=== PATIENT | female | born 1975 | race Caucasian/White ===

== ENCOUNTER 2017-12-30 10:11 | Inpatient (IN) | payer SELFPAY ==
[2017-12-30 11:21] LABS: #Eosinphils 0.1 thou/uL (0.0-0.7); #Lymphocytes 1.2 thou/uL (1.20-3.40); #Monocytes 0.7 thou/uL (0.11-0.59); #Neutrophils 7.2 thou/uL (1.40-6.50); %Basophils 0.5 % (0.0-1.0); %Eosinophils 1.1 % (0.0-10.0); %Lymphocytes 13.1 % (21.0-51.0); %Monocytes 7.6 % (0.0-10.0); %Neutrophils 77.7 % (42.0-75.0); Hemoglobin 15.2 g/dL (12.0-16.0); Mean Corpuscular HGB CONC 32.4 g/dL (32.0-36.0); Mean Corpuscular Hemoglobin 28.5 pg (27.0-31.0); Mean Platelet Volume 8.8 fL (7.4-10.4); Platelet Count 247 thou/uL (130-400); RBC Distribution Width 17.4 % (11.5-14.5); Red Blood Cell (RBC) Count 5.32 mill/uL (4.20-5.40); White Blood Cell (WBC) Count 9.2 thou/uL (4.8-10.8)
[2017-12-30 11:39] LABS: ALT (SGPT) 20 U/L (8-55); AST (SGOT) 25 U/L (5-34); Albumin 3.2 g/dL (3.5-5.0); Alkaline Phosphatase 108 U/L (40-150); Anion Gap 12 mmol/L (10-20); BUN (Urea Nitrogen) 30 mg/dL (7.0-18.7); Calc. Creatinine Clearance 0 mL/min (70-130); Calcium 8.7 mg/dL (7.8-10.44); Carbon Dioxide 22 mmol/L (22-29); Chloride 105 mmol/L (98-107); Estimated GFR-MDRD 19; Globulin 3.4 g/dL (2.4-3.5); Glucose 111 mg/dL (70-105); Potassium 3.5 mmol/L (3.5-5.1); Protein, Total 6.6 g/dL (6.0-8.3); Sodium 135 mmol/L (136-145)
[2017-12-30 11:43] LABS: CKMB 2.8 ng/mL (0-6.6); Troponin I 0.299 ng/mL (< 0.028)
[2017-12-30] MEDS ORDERED: Furosemide 40 MG/4 ML VIAL ONE (11:43)
[2017-12-30] MEDS ORDERED: Nitroglycerin 50 MG/250 ML BOT 250 ML ONE (12:57)
--- NOTE | 2017-12-30 13:05 | RAD ---
RADIOGRAPH CHEST 1 VIEW: HISTORY: 42-year-old female with dyspnea. FINDINGS: There is cardiomegaly. There is no evidence of air space density, pulmonary edema, or pneumothorax. T he lateral costophrenic angles are sharp. IMPRESSION: 1. No acute pulmonary findings. 2. Cardiomegaly without congestive heart failure. ghulam [] POS: BREEZY
[2017-12-30] MEDS ORDERED: Nitroglycerin 50 MG/250 ML BOT 250 ML IVPB SCH (14:45)
[2017-12-30 14:47] LABS: BHCG - Serum Negative (NEGATIVE); Pregs Control Background? CLEAR/WHITE (CLR/WHITE); Pregs Control Bar Appear? YES (CONTROL BAR)
[2017-12-30 14:48] LABS: Troponin I 0.283 ng/mL (< 0.028)
[2017-12-30] MEDS ORDERED: Lorazepam 2 MG/ML VIAL ONE (15:08)
[2017-12-30 15:23] VITALS: BMI 41.8
[2017-12-30] MEDS ORDERED: Calcium Carbonate 500 MG ChewTAB PO PRN (17:15)
[2017-12-30] MEDS ORDERED: Bisacodyl 5 MG TAB PO PRN (17:18)
[2017-12-30] MEDS ORDERED: Acetaminophen 325 MG TAB PO PRN (17:18)
[2017-12-30] MEDS ORDERED: Acetaminophen 650 MG Suppository PR PRN (17:18)
[2017-12-30] MEDS: cloNIDine 0.1 MG TAB PO PRN (18:08)
--- NOTE | 2017-12-30 18:30 | HP ---
PRIMARY CARE PROVIDER: None. CHIEF COMPLAINT: Shortness of breath. HISTORY OF PRESENT ILLNESS: Ms. Sanchez is a pleasant 42-year-old lady, who was seen at [facility] on 12/30/2017. She reports that she was diagnosed with congestive heart failure approximately 2 years ago at [facility]. She was told that she had stage 3 heart failure. She was started on furosemide. At the [facility] time, she had a cardiac catheterization during that hospitalization and she was told that she had clean coronaries. She was subsequently hospitalized in 04/2017 at the same facility and reports that she had ultrasound of kidneys. She does not know the result of the test. 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 She was taking furosemide 40 mg 2 times a day. She ran out of the medications a couple of weeks ago and stopped taking furosemide and isosorbide mononitrate. She found 2 tablets of furosemide yesterda y and took them. Over the last couple of weeks, she has had progressively worsening shortness of breath. She reports cough. She also reports bilateral lower extremity swelling and abdominal swelling. She denies any c hest pain. She denies any fevers or chills. She endorses orthopnea. She reports occasional sputum. She denies any nausea, vomiting, diarrhea or abdominal pain. She does report sensation of bloated abdomen. REVIEW OF SYSTEMS: All other systems reviewed and found to be negative. PAST MEDICAL HISTORY: Significant for congestive heart failure and hypertension. PAST SURGICAL HISTORY: Significant for cholecystectomy, section x3 and tubal ligation. SOCIAL HISTORY: The patient quit smoking 4 months ago. She denies any alcohol use or recreational d rug use. FAMILY HISTORY: Significant for congestive heart failure in her father, dementia and ovarian cancer in her mother. Her sister also had heart failure. ALLERGIES: No known drug allergies. CURRENT MEDICATIONS: Tums 1000 mg 4 times a day as needed; Coreg 12.5 mg 2 times a day; furosemide 4 0 mg 2 times a day, which she has not been taking; hydralazine 50 mg 3 times a day; isosorbide mononi trate 30 mg daily, which she has not been taking; and lisinopril 5 mg daily. PHYSICAL EXAMINATION: GENERAL: Ms. Sanchez is awake and alert, not in acute distress. VITAL SIGNS: Blood pressure is 211/125, pulse is 78, she is breathing at rate of 22 and saturating 9 7% on room air. She is afebrile. EYES: No scleral icterus. No conjunctival pallor. ENT: Moist mucosal membranes, no oropharyngeal erythema or exudates. NECK: Supple, nontender, trachea is midline. She has jugular venous distention. RESPIRATORY: Accessory muscles of breathing are not active. Chest wall movements are symmetric bila terally. She has bibasilar crackles. CARDIOVASCULAR: S1 and S2 are heard, regular. Peripheral pulses palpable. No carotid bruit, no per icardial rub. ABDOMEN: Distended, nontender, bowel sounds are heard, no hepatomegaly, no splenomegaly. NEUROLOGIC: Cranial nerves II-XII intact. Deep tendon reflexes are 2+. MUSCULOSKELETAL: Power is 5/5 in all four extremities. She has bilateral lower extremity edema. SKIN: Tattoos present. LYMPHATIC: No cervical lymphadenopathy. PSYCHIATRIC: Normal mood, normal affect, patient is oriented to person, place and time. BODY HABITUS: Obese. LABORATORY DATA: Ms. Sanchez's labs and investigations were reviewed. I reviewed her electrocardiogram , which shows normal sinus rhythm, no ST changes to suggest an acute coronary syndrome. I also revie wed her chest x-ray, which does not show any pulmonary infiltrates. She has an unremarkable CBC, dec reased sodium of 135, normal potassium, elevated blood urea nitrogen of 30, elevated creatinine 2.79, normal calcium, elevated total bilirubin of 2.0, normal AST, normal ALT, normal alkaline phosphatase , indeterminate troponin I of 0.299, elevated BNP of 8296 and decreased albumin of 3.2. Serum pregna ncy test is negative. ASSESSMENT AND PLAN: Ms. Sanchez is a pleasant 42-year-old lady, who was seen at [facility] on 12/30/2017. Her problem list includes: 1. Hypertensive urgency: Ms. Sanchez is presenting with hypertensive urgency. She reports compliance to all her medications except for furosemide and isosorbide mononitrate. She will be admitted to the CCU and continued on nitroglycerin drip, which has been started by the emergency room physician noah sun of congestive heart failure. Her vital signs will be monitored and antihypertensives titrated as needed. 2. Congestive heart failure exacerbation. The patient has known congestive heart failure. We will continue the patient on intravenous furosemide. We will continue on nitroglycerin drip. We will jonathan ck 2D echocardiogram to evaluate cardiac function. 3. Renal insufficiency: Chronicity unclear. However, she reports having renal ultrasound last year . It is possible that this is chronic kidney disease or acute on chronic renal failure. We will obt ain records from [facility] both regarding renal issues as well as her cardiac procedures to help with management here. 4. Hyponatremia: Mild. 5. Indeterminate troponin. The patient denies any chest pain. Troponin elevation could be secondar y to congestive heart failure exacerbation or chronic renal insufficiency. We will trend troponins. LEVEL OF RISK: High. LEVEL OF COMPLEXITY: High.
[2017-12-30] MEDS: hydrALAZINE 25 MG TAB PO SCH (19:27)
[2017-12-30] MEDS: Heparin 5,000 UNITS/ML VIAL SC SCH (19:28)
[2017-12-30] MEDS ORDERED: Carvedilol 6.25 MG TAB PO SCH (21:00)
[2017-12-30] MEDS ORDERED: Furosemide 40 MG TAB PO SCH (21:00)
[2017-12-30] MEDS: Lorazepam 2 MG/ML VIAL SLOW IVP PRN (21:11)
[2017-12-31 04:22] LABS: #Eosinphils 0.1 thou/uL (0.0-0.7); #Lymphocytes 1.1 thou/uL (1.20-3.40); #Monocytes 0.6 thou/uL (0.11-0.59); #Neutrophils 4.4 thou/uL (1.40-6.50); %Basophils 0.6 % (0.0-1.0); %Eosinophils 1.3 % (0.0-10.0); %Lymphocytes 17.3 % (21.0-51.0); %Monocytes 9.5 % (0.0-10.0); %Neutrophils 71.2 % (42.0-75.0); Hemoglobin 12.8 g/dL (12.0-16.0); Mean Corpuscular HGB CONC 32.7 g/dL (32.0-36.0); Mean Corpuscular Hemoglobin 28.8 pg (27.0-31.0); Mean Corpuscular Volume 87.9 fl (81.0-99.0); Mean Platelet Volume 8.8 fL (7.4-10.4); Platelet Count 205 thou/uL (130-400); RBC Distribution Width 17.1 % (11.5-14.5); Red Blood Cell (RBC) Count 4.44 mill/uL (4.20-5.40); White Blood Cell (WBC) Count 6.1 thou/uL (4.8-10.8)
[2017-12-31 04:32] LABS: Anion Gap 10 mmol/L (10-20); BUN (Urea Nitrogen) 27 mg/dL (7.0-18.7); Calc. Creatinine Clearance 49 mL/min (70-130); Calcium 7.8 mg/dL (7.8-10.44); Carbon Dioxide 25 mmol/L (22-29); Chloride 104 mmol/L (98-107); Estimated GFR-MDRD 20; Glucose 91 mg/dL (70-105); Potassium 3.3 mmol/L (3.5-5.1); Sodium 136 mmol/L (136-145)
[2017-12-31] MEDS ORDERED: Furosemide 40 MG/4 ML VIAL SLOW IVP SCH (06:00)
[2017-12-31] MEDS: hydrALAZINE 25 MG TAB PO SCH ×3 (08:47→20:43)
[2017-12-31] MEDS: Carvedilol 25 MG TAB PO SCH ×2 (08:48→20:44)
[2017-12-31] MEDS: Furosemide 40 MG TAB PO SCH ×2 (08:48→14:50)
[2017-12-31] MEDS: Heparin 5,000 UNITS/ML VIAL SC SCH ×3 (08:49→20:43)
[2017-12-31] MEDS ORDERED: Lisinopril 5 MG TAB PO SCH (09:00)
[2017-12-31] MEDS ORDERED: Potassium Chloride 20 MEQ TAB PO SCH (09:45)
[2017-12-31] MEDS ORDERED: hydrALAZINE 20 MG/ML VIAL SLOW IVP PRN (10:35)
[2017-12-31] MEDS ORDERED: Labetalol HCl 100 MG/20 ML VIAL SLOW IVP PRN (10:35)
--- NOTE | 2017-12-31 10:51 | CON ---
DATE OF CONSULTATION: 12/31/2017 HISTORY: The patient is an unfortunate 42-year-old woman with a history of severe cardiomyopathy who presented with headaches, nausea and weakness. The patient has a long history of poorly controlled hypertension. Three years ago she presented with congestive heart failure. She was found to have a severe cardiomyopathy. She apparently underwent a cardiac catheterization that revealed normal coron chris arteries. The patient has been under the care of a boxing promoter in [place] at [facility]. The patient states that she ran out of some of her medications. She presented to the emergency room with increasing weakness and dyspnea. PAST MEDICAL HISTORY: 1. Cardiomyopathy. 2. Hypertension. 3. Chronic renal insufficiency. PAST SURGICAL HISTORY: Cholecystectomy, tubal ligation. SOCIAL HISTORY: The patient has a long history of tobacco abuse. She denies having any use of exces s alcohol. FAMILY HISTORY: Strong family history of congestive heart failure. ALLERGIES: No known drug allergies. MEDICATIONS ON ADMISSION: Coreg 12.5 b.i.d., Lasix 40 b.i.d., Imdur 30 q.a.m., lisinopril 5 daily. PHYSICAL EXAMINATION: GENERAL: This is an obese woman in no acute distress. VITAL SIGNS: Blood pressure now is 144/92. NECK: Neck is full with no jugular venous distension. LUNGS: Clear to auscultation. HEART: Regular rate and rhythm, normal S1, S2. ABDOMEN: Distended. EXTREMITIES: Showed trace edema. LABORATORY: Sodium 135, potassium 3.5, chloride 105, respiratory rate 22, BUN 30, creatinine is 2.79 , troponin was 0.35. BNP was 8,298. Her white blood cell count was 6.1, hemoglobin 12.8, hematocrit 39.0 and her platelets were 205. Her chest x-ray showed cardiomegaly without any evidence of acute pulmonary edema. IMPRESSION: 1. Hypertensive crisis. 2. Cardiomyopathy. 3. Renal insufficiency. 4. Obesity. 5. Noncompliance. This patient presented with a hypertensive crisis after running out of some of her cardiac medication s. We will obtain records from [place]. We will repeat an echocardiogram to reevaluate her left vent ricular function. We will increase the dose of her Coreg to try to obtain optimal dosing of 50 mg tw ice daily. We will follow this patient with you through her hospitalization.
--- NOTE | 2017-12-31 12:45 | CON ---
DATE OF CONSULTATION: 12/31/2017 SERVICE: Pulmonary Medicine. REASON FOR CONSULTATION: ICU patient. HISTORY OF PRESENT ILLNESS: The patient is a 42-year-old white female with past medical history significant for hypertension and heart failure. For the last 2-3 weeks, the patient has had increasing lower extremity swelling and shortness of breath spells. She was not able to sleep at night. Anytime she would lie down, she wakes up 15-20 minutes later short of breath. She would have to breathe for a couple of minutes before drifting right back to sleep. She relates for the last 3 days, she has been sleeping almost continuously because she does not get any quality of rest. She decided it was time to come to the Emergency Department. She notes increasing lower extremity swelling. She also had increasing abdominal girth. Overnight, she got a dose of Lasix and things improved significantly. She has multiple features consistent with possible sleep apnea. She does not know of any kidney problems. PAST MEDICAL HISTORY: 1. Hypertension. 2. Chronic heart failure. PAST SURGICAL HISTORY: 1. Cholecystectomy. 2. x3. 3. Tubal ligation. SOCIAL HISTORY: The patient quit smoking 4 months ago, but before that she had a [id number] history of smoking. She denies any alcohol or illicit drug use. She has no exposure to chemicals, dust asbestos or tuberculosis. FAMILY HISTORY: Noncontributory. ALLERGIES: No known drug allergies. MEDICATIONS: List of her inpatient medications were reviewed. No specific updates were made at this time. REVIEW OF SYSTEMS : General, head, ears, eyes, nose, throat, cardiovascular, respiratory, GI, , musculoskeletal, neurologic and skin is negative except for mentioned in the HPI. PHYSICAL EXAMINATION: VITAL SIGNS: Afebrile, pulse 68, blood pressure 182/86, respirations 31, saturation 95% on room air. GENERAL: The patient is awake and alert, no apparent distress. LUNGS: Decent air entry. There is actually no prolonged expiratory phase, wheezing, rhonchi or crackles present. HEART: Normal rate, regular. ABDOMEN: Soft, nontender, nondistended. Bowel sounds are positive. MUSCULOSKELETAL: No cyanosis or clubbing. There is 1+ pitting in the right lower extremity and 2+ pitting in the left lower extremity. GENITOURINARY: No Willis. NEUROLOGIC: Grossly nonfocal. LABORATORY DATA: Creatinine 2.57 and gently down trending. Potassium 3.3. Basic metabolic profile is otherwise unremarkable. Troponin is gently up trending to 0.35, BNP 8200. Urine is unremarkable, though she has no uterus. Liver function studies are essentially unremarkable except for a total bilirubin of 2.0. IMAGING: Chest x-ray demonstrates cardiomegaly. There are subtle changes consistent with minimal volume overload with interstitial markings that predominate. That being said, low lung volumes could accentuate these markings. Pulmonary vascular congestion is a chronically evident. ASSESSMENT: 1. Acute on chronic heart failure. 2. Hypertensive emergency. 3. Hypokalemia. 4. Acute kidney injury verses chronic renal insufficiency. 5. Obstructive sleep apnea. 6. Non-ST elevation myocardial infarction. PLAN: The patient is doing fantastic. At this point, she can be transitioned to the telemetry unit. Potassium will be rechecked. Pulmonary Critical Care will continue to follow along for the time being. In the outpatient setting, I would like her to follow up with me, so we can set her up with a polysomnogram. 70 minutes have been devoted to this patient in various activities. I personally reviewed all imaging studies and laboratory data noted within this document. For fifty percent of this time, I was interacting with the patient at the bedside or coordinating care with the care team. For the remainder of the time I was immediately available to the patient in the hospital unit. SOPHIE
--- NOTE | 2017-12-31 16:55 | PDOC.PN ---
- Subjective Encounter Start Date: 12/31/17 Encounter Start Time: 09:20 Pt seen for followup re: CHF exacerbation. Denies chest pain, feels better in terms of breathing. - Objective Vital Signs & Weight: Vital Signs (12 hours) Temp Pulse Pulse Pulse Resp BP BP 12/31/17 15:00 97.7 F 64 20 12/31/17 14:50 64 12/31/17 14:47 64 20 12/31/17 14:27 58 L 64 176/99 H 172/83 H 12/31/17 12:00 98 F 12/31/17 08:47 68 12/31/17 08:00 97.8 F 68 19 BP Pulse Ox Pulse Ox Pulse Ox 12/31/17 15:00 98 12/31/17 14:50 12/31/17 14:47 172/83 H 98 12/31/17 14:27 96 96 12/31/17 12:00 12/31/17 08:47 12/31/17 08:00 94 L Weight Weight 237 lb 14.06 oz Most Recent Monitor Data Heart Rate from ECG 60 NIBP 176/99 NIBP BP-Mean 131 Respiration from ECG 25 SpO2 96 I&O: 12/30/17 12/31/17 01/01/18 06:59 06:59 06:59 Intake Total 1238 180 Output Total 2950 2750 Balance -1712 -7930 Result Diagrams: 12/31/17 03:38 12/31/17 03:38 Phys Exam - Physical Examination Obesity HEENT: moist MMs, sclera anicteric, oral pharynx no lesions, 2+ tonsils Neck: no nodes, supple, full ROM JVD Respiratory: no wheezing, no rhonchi Luís crackles Cardiovascular: RRR, no rub S1, S2 Gastrointestinal: soft, non-tender, positive bowel sounds distention Musculoskeletal: edema present Neurological: moves all 4 limbs Psychiatric: normal affect, A&O x 3 Dx/Plan (1) Acute exacerbation of CHF (congestive heart failure) Code(s): I50.9 - HEART FAILURE, UNSPECIFIED Status: Acute Qualifiers: Heart failure type: unspecified Qualified Code(s): I50.9 - Heart failure, unspecified Comment: await 2D echo, continue IV furosemide (2) Elevated troponin I level Code(s): R74.8 - ABNORMAL LEVELS OF OTHER SERUM ENZYMES Status: Acute Comment: due to CHF vs. demand ischemia vs. NSTEMI. Pt denies any chest pain at this time. (3) Hypokalemia Code(s): E87.6 - HYPOKALEMIA Status: Acute Comment: replace potassium, recheck. (4) CKD (chronic kidney disease) Code(s): N18.9 - CHRONIC KIDNEY DISEASE, UNSPECIFIED Status: Acute Comment: creatinine improving, await paperwork from outside facility to figure out chronicity (5) HTN (hypertension) Code(s): I10 - ESSENTIAL (PRIMARY) HYPERTENSION Status: Chronic Comment: BP better today. Continue to monitor vital signs and titrate antihypertensives as needed - Plan * . Review of Systems - Review of Systems Constitutional: negative: fever, chills, sweats, weakness, malaise Respiratory: Shortness of Breath, SOB with Excertion. negative: Cough, Dry, Hemoptysis, Pleuritic Pain, Sputum, Wheezing Cardiovascular: orthopnea, paroxysmal nocturnal dyspnea, edema. negative: chest pain, palpitations, light headedness Gastrointestinal: negative: Nausea, Vomiting, Abdominal Pain, Diarrhea, Constipation, Melena, Hematochezia Genitourinary: negative: Dysuria, Frequency, Incontinence, Hematuria, Retention Neurological: negative: Weakness, Numbness, Incoordination, Change in Speech, Confusion, Seizures - Medications/Allergies Allergies/Adverse Reactions: Allergies Allergy/AdvReac Type Severity Reaction Status Date / Time No Known Allergies Allergy Verified 12/30/17 15:17 Medications: Current Medications Acetaminophen (Tylenol) 650 mg PO Q4H PRN PRN Reason: Headache/Fever or Pain Acetaminophen (Tylenol) 650 mg TN Q4H PRN PRN Reason: Headache/Fever or Pain Bisacodyl (Dulcolax) 10 mg PO DAILYPRN PRN PRN Reason: Constipation Calcium Carbonate (Tums) 1,000 mg PO QID PRN PRN Reason: Indigestion Carvedilol (Coreg) 25 mg PO BID [facility] Last Admin: 12/31/17 08:48 Dose: 25 mg Clonidine (Catapres) 0.1 mg PO Q4H PRN PRN Reason: SBP Greater Than 170 Last Admin: 12/30/17 18:08 Dose: 0.1 mg Furosemide (Lasix) 40 mg PO 0900,1400 [facility] Last Admin: 12/31/17 14:50 Dose: 40 mg Heparin Sodium (Porcine) (Heparin) 5,000 units SC TID [facility] Last Admin: 12/31/17 14:51 Dose: 5,000 units Hydralazine HCl (Apresoline) 20 mg SLOW IVP Q2H PRN PRN Reason: SBP Greater Than 180 Hydralazine HCl (Apresoline) 50 mg PO TID [facility] Last Admin: 12/31/17 14:50 Dose: 50 mg Isosorbide Mononitrate (Imdur) 60 mg PO DAILY [facility] Last Admin: 12/31/17 08:48 Dose: 60 mg Labetalol HCl (Normodyne) 20 mg SLOW IVP Q2H PRN PRN Reason: SBP Greater Than 180 Lorazepam (Ativan) 0.5 mg SLOW IVP Q6H PRN PRN Reason: Anxiety Last Admin: 12/30/17 21:11 Dose: 0.5 mg Sodium Chloride (Flush - Normal Saline) 10 ml IVF Q12HR [facility] Last Admin: 12/31/17 08:49 Dose: 10 ml Sodium Chloride (Flush - Normal Saline) 10 ml IVF PRN PRN PRN Reason: Saline Flush
[2017-12-31] MEDS: cloNIDine 0.1 MG TAB PO PRN (18:06)
[2018-01-01] MEDS: Lorazepam 2 MG/ML VIAL SLOW IVP PRN (00:28)
[2018-01-01 04:21] LABS: Anion Gap 8 mmol/L (10-20); BUN (Urea Nitrogen) 34 mg/dL (7.0-18.7); Calc. Creatinine Clearance 49 mL/min (70-130); Calcium 8.3 mg/dL (7.8-10.44); Carbon Dioxide 29 mmol/L (22-29); Chloride 105 mmol/L (98-107); Estimated GFR-MDRD 21; Glucose 102 mg/dL (70-105); Magnesium 1.9 mg/dL (1.6-2.6); Potassium 3.8 mmol/L (3.5-5.1); Sodium 138 mmol/L (136-145)
[2018-01-01] MEDS: hydrALAZINE 25 MG TAB PO SCH ×3 (07:46→20:37)
[2018-01-01] MEDS: Furosemide 40 MG TAB PO SCH ×2 (07:46→14:10)
[2018-01-01] MEDS: Carvedilol 25 MG TAB PO SCH ×2 (07:46→20:38)
[2018-01-01] MEDS: Heparin 5,000 UNITS/ML VIAL SC SCH ×3 (07:47→20:38)
--- NOTE | 2018-01-01 10:24 | PRG ---
DATE OF SERVICE: 01/01/2018 SERVICE: Pulmonary Medicine. INTERVAL HISTORY: The patient seems to be breathing a little bit better today. She is complaining o f some discomfort on the right shoulder. As such, she is sleeping on her left side, which is the bad side to sleep on. Otherwise, there has been no interval change to her condition. She has demonstra kimberlyn some hemodynamic stability for a period of time. PHYSICAL EXAMINATION: VITAL SIGNS: Afebrile, pulse 75, blood pressure 182/98, respirations 19, saturation 95% on room air. GENERAL: Patient is awake, alert, no apparent distress. LUNGS: Good air entry. There is no prolonged expiratory phase, wheezing, rhonchi, or crackles prese nt. HEART: Normal rate, regular. ABDOMEN: Soft, nontender, nondistended. Bowel sounds are positive. MUSCULOSKELETAL: No cyanosis or clubbing. There is 1-2+ pitting in the bilateral lower extremities. NEUROLOGIC: Grossly nonfocal. LABORATORY DATA: WBC 6.1, hemoglobin 12.8, platelets 205,000. Creatinine 2.54. Basic metabolic pro file and magnesium are, otherwise, unremarkable. IMAGING: Echocardiogram demonstrates a 10%-15% ejection fraction. Left atrium is mildly dilated. I t appears that there is concentric left ventricular hypertrophy. RV systolic pressures are severely elevated. ASSESSMENT: 1. Acute on chronic systolic and diastolic heart failure. 2. Pulmonary hypertension, likely multifactorial, but secondary to left heart disease and possible s leep apnea. 3. Chronic kidney disease. 4. Obstructive sleep apnea, suspected. 5. Non-ST elevation myocardial infarction. PLAN: The patient can be transitioned to the telemetry unit. We will continue to diurese her gently as time goes on. When she gets out of the hospital, she will need to see me in clinic so we can set her up for an in-lab polysomnogram given her heart failure.
--- NOTE | 2018-01-01 17:33 | PDOC.PN ---
- Subjective Encounter Start Date: 01/01/18 Encounter Start Time: 09:40 Pt seen for followup re: CHF exacerbation. Denies chest pain. Shortness of breath is better. No nausea or vomiting. - Objective MAR Reviewed: Yes Vital Signs & Weight: Vital Signs (12 hours) Temp Pulse Pulse Pulse Resp BP BP 01/01/18 16:16 59 L 183/115 H 01/01/18 15:16 97.6 F 59 L 19 01/01/18 14:10 58 L 183/97 H 01/01/18 11:41 98.6 F 58 L 01/01/18 11:22 61 61 160/99 H 01/01/18 08:00 97.6 F 75 19 01/01/18 07:46 75 182/98 H 01/01/18 07:41 97.6 F 75 19 BP BP Pulse Ox Pulse Ox Pulse Ox 01/01/18 16:16 01/01/18 15:16 178/109 H 97 01/01/18 14:10 01/01/18 11:41 145/81 H 01/01/18 11:22 140/81 95 94 L 01/01/18 08:00 95 01/01/18 07:46 01/01/18 07:41 182/98 H 95 Weight Weight 257 lb 12.8 oz Most Recent Monitor Data Heart Rate from ECG 60 NIBP 176/99 NIBP BP-Mean 131 Respiration from ECG 25 SpO2 96 I&O: 12/31/17 01/01/18 01/02/18 06:59 06:59 06:59 Intake Total 1238 1110 Output Total 2950 5250 500 Balance -1712 -4140 -500 Result Diagrams: 12/31/17 03:38 01/01/18 03:50 EKG Reviewed by me: Yes (Tele: NSR) Phys Exam - Physical Examination Morbid obesity HEENT: moist MMs, sclera anicteric, oral pharynx no lesions, 2+ tonsils Neck: no nodes, supple, full ROM JVD Respiratory: no wheezing, no rales, no rhonchi, clear to auscultation bilateral Cardiovascular: RRR, no rub S1, S2 Gastrointestinal: soft, non-tender, no distention, positive bowel sounds Musculoskeletal: edema present Neurological: moves all 4 limbs Psychiatric: normal affect, A&O x 3 Dx/Plan (1) Acute exacerbation of CHF (congestive heart failure) Code(s): I50.9 - HEART FAILURE, UNSPECIFIED Status: Acute Qualifiers: Heart failure type: unspecified Qualified Code(s): I50.9 - Heart failure, unspecified Comment: 2D echo report noted, EF 10-15%, continue IV furosemide (2) Cardiomyopathy Code(s): I42.9 - CARDIOMYOPATHY, UNSPECIFIED Status: Acute Comment: EF was around 30% on her last echo, now worse. Continue beta darlin. Not on ACEI or ARB due to renal failure. (3) Elevated troponin I level Code(s): R74.8 - ABNORMAL LEVELS OF OTHER SERUM ENZYMES Status: Acute Comment: due to CHF vs. demand ischemia vs. NSTEMI. Pt denies any chest pain at this time. Pt reportedly had her cardiac cath at [facility] in [place], will obtain records (4) CKD (chronic kidney disease) Code(s): N18.9 - CHRONIC KIDNEY DISEASE, UNSPECIFIED Status: Chronic Comment : Pt had Cr 2.5 last April at [facility]. [facility] CKD (5) HTN (hypertension) Code(s): I10 - ESSENTIAL (PRIMARY) HYPERTENSION Status: Chronic Comment: Increase hydralazine dose today. Continue to monitor vital signs and titrate antihypertensives as needed (6) Hypokalemia Code(s): E87.6 - HYPOKALEMIA Status: Resolved - Plan * . Review of Systems - Review of Systems Constitutional: negative: fever, chills, sweats, weakness, malaise Respiratory: SOB with Excertion. negative: Cough, Shortness of Breath, Pleuritic Pain, Wheezing Cardiovascular: orthopnea, edema, other. negative: chest pain, palpitations, paroxysmal nocturnal dyspnea, light headedness Gastrointestinal: negative: Nausea, Vomiting, Abdominal Pain, Diarrhea, Constipation, Melena, Hematochezia Genitourinary: negative: Dysuria, Frequency, Incontinence, Hematuria, Retention - Medications/Allergies Allergies/Adverse Reactions: Allergies Allergy/AdvReac Type Severity Reaction Status Date / Time No Known Allergies Allergy Verified 12/30/17 15:17 Medications: Current Medications Acetaminophen (Tylenol) 650 mg PO Q4H PRN PRN Reason: Headache/Fever or Pain Acetaminophen (Tylenol) 650 mg AR Q4H PRN PRN Reason: Headache/Fever or Pain Bisacodyl (Dulcolax) 10 mg PO DAILYPRN PRN PRN Reason: Constipation Calcium Carbonate (Tums) 1,000 mg PO QID PRN PRN Reason: Indigestion Carvedilol (Coreg) 25 mg PO BID [facility] Last Admin: 01/01/18 07:46 Dose: 25 mg Clonidine (Catapres) 0.1 mg PO Q4H PRN PRN Reason: SBP Greater Than 170 Last Admin: 12/31/17 18:06 Dose: 0.1 mg Furosemide (Lasix) 40 mg PO 0900,1400 [facility] Last Admin: 01/01/18 14:10 Dose: 40 mg Heparin Sodium (Porcine) (Heparin) 5,000 units SC TID [facility] Last Admin: 01/01/18 14:11 Dose: 5,000 units Hydralazine HCl (Apresoline) 20 mg SLOW IVP Q2H PRN PRN Reason: SBP Greater Than 180 Last Admin: 01/01/18 16:16 Dose: 20 mg Hydralazine HCl (Apresoline) 50 mg PO TID [facility] Last Admin: 01/01/18 14:10 Dose: 50 mg Isosorbide Mononitrate (Imdur) 60 mg PO DAILY [facility] Last Admin: 01/01/18 07:46 Dose: 60 mg Labetalol HCl (Normodyne) 20 mg SLOW IVP Q2H PRN PRN Reason: SBP Greater Than 180 Lorazepam (Ativan) 0.5 mg SLOW IVP Q6H PRN PRN Reason: Anxiety Last Admin: 01/01/18 00:28 Dose: 0.5 mg Sodium Chloride (Flush - Normal Saline) 10 ml IVF Q12HR [facility] Last Admin: 01/01/18 07:47 Dose: 10 ml Sodium Chloride (Flush - Normal Saline) 10 ml IVF PRN PRN PRN Reason: Saline Flush
[2018-01-02 04:40] LABS: Anion Gap 9 mmol/L (10-20); BUN (Urea Nitrogen) 35 mg/dL (7.0-18.7); Calc. Creatinine Clearance 60 mL/min (70-130); Calcium 8.5 mg/dL (7.8-10.44); Carbon Dioxide 28 mmol/L (22-29); Chloride 105 mmol/L (98-107); Estimated GFR-MDRD 24; Glucose 95 mg/dL (70-105); Magnesium 1.9 mg/dL (1.6-2.6); Potassium 3.5 mmol/L (3.5-5.1); Sodium 138 mmol/L (136-145)
[2018-01-02] MEDS: Heparin 5,000 UNITS/ML VIAL SC SCH ×3 (08:23→20:58)
[2018-01-02] MEDS: Carvedilol 25 MG TAB PO SCH ×3 (08:23→20:56)
[2018-01-02] MEDS: Furosemide 40 MG TAB PO SCH ×2 (08:23→13:48)
[2018-01-02] MEDS: hydrALAZINE 25 MG TAB PO SCH ×3 (08:23→20:57)
[2018-01-02] MEDS: Lisinopril 5 MG TAB PO SCH (11:37)
--- NOTE | 2018-01-02 15:24 | PDOC.PN ---
- Subjective Encounter Start Date: 01/02/18 Encounter Start Time: 10:40 Pt seen for followup re: CHF exacerbation. Feels better. No nausea or vomiting. - Objective MAR Reviewed: Yes Vital Signs & Weight: Vital Signs (12 hours) Temp Pulse Pulse Pulse Resp BP BP 01/02/18 11:37 67 176/97 H 01/02/18 11:13 97.9 F 67 18 01/02/18 11:12 58 L 58 L 176/97 H 01/02/18 09:40 01/02/18 08:23 53 L 207/105 H 01/02/18 08:00 97.1 F L 53 L 20 01/02/18 07:32 97.1 F L 53 L 20 BP BP BP Pulse Ox Pulse Ox Pulse Ox 01/02/18 11:37 01/02/18 11:13 156/96 H 96 01/02/18 11:12 164/94 H 97 98 01/02/18 09:40 163/84 H 01/02/18 08:23 01/02/18 08:00 01/02/18 07:32 98 Weight Weight 249 lb 6.4 oz Most Recent Monitor Data Heart Rate from ECG 60 NIBP 176/99 NIBP BP-Mean 131 Respiration from ECG 25 SpO2 96 I&O: 01/01/18 01/02/18 01/03/18 06:59 06:59 06:59 Intake Total 1110 1200 Output Total 5250 2600 Balance -4140 -1400 Result Diagrams: 12/31/17 03:38 01/02/18 03:58 EKG Reviewed by me: Yes (Tele: NSR) Phys Exam - Physical Examination Morbid obesity HEENT: moist MMs, sclera anicteric, oral pharynx no lesions, 2+ tonsils Neck: no nodes, no JVD, supple, full ROM Respiratory: no wheezing, no rhonchi Lu[place] crackles Cardiovascular: RRR, no rub S1, S2 Gastrointestinal: soft, non-tender, positive bowel sounds distended Musculoskeletal: pulses present, edema present Neurological: moves all 4 limbs Lymphatic: no nodes Psychiatric: normal affect, A&O x 3 Dx/Plan (1) Acute exacerbation of CHF (congestive heart failure) Code(s): I50.9 - HEART FAILURE, UNSPECIFIED Status: Acute Qualifiers: Heart failure type: systolic Qualified Code(s): I50.23 - Acute on chronic systolic (congestive) heart failure Comment: Improving, switched to oral furosemide today. ACC AHA Class C. Low EF, needs Life Vest (2) Cardiomyopathy Code(s): I42.9 - CARDIOMYOPATHY, UNSPECIFIED Status: Acute Comment: Continue beta darlin, no ACEI or ARB due to renal failure. (3) Elevated troponin I level Code(s): R74.8 - ABNORMAL LEVELS OF OTHER SERUM ENZYMES Status: Acute Comment: due to CHF vs. demand ischemia vs. NSTEMI. No chest pain, awaiting cath report (4) CKD (chronic kidney disease) Code(s): N18.9 - CHRONIC KIDNEY DISEASE, UNSPECIFIED Status: Chronic Comment : Improving (5) HTN (hypertension) Code(s): I10 - ESSENTIAL (PRIMARY) HYPERTENSION Status: Chronic Comment: Hydralazine dose was increased yesterday. BP still high. Coreg dose increased today. Continue to monitor vital signs and titrate antihypertensives as needed (6) Hypokalemia Code(s): E87.6 - HYPOKALEMIA Status: Resolved - Plan * . Review of Systems - Review of Systems Constitutional: negative: fever, chills, sweats, weakness, malaise Respiratory: Cough, Dry, Shortness of Breath, SOB with Excertion Cardiovascular: negative: chest pain, palpitations, orthopnea, paroxysmal nocturnal dyspnea, edema, light headedness Gastrointestinal: negative: Nausea, Vomiting, Abdominal Pain, Diarrhea, Constipation, Melena, Hematochezia Genitourinary: negative: Dysuria, Frequency, Incontinence, Hematuria, Retention Skin: negative: Rash, Lesions, Javed, Bruising - Medications/Allergies Allergies/Adverse Reactions: Allergies Allergy/AdvReac Type Severity Reaction Status Date / Time No Known Allergies Allergy Verified 12/30/17 15:17 Medications: Current Medications Acetaminophen (Tylenol) 650 mg PO Q4H PRN PRN Reason: Headache/Fever or Pain Last Admin: 01/01/18 20:40 Dose: 650 mg Acetaminophen (Tylenol) 650 mg DE Q4H PRN PRN Reason: Headache/Fever or Pain Bisacodyl (Dulcolax) 10 mg PO DAILYPRN PRN PRN Reason: Constipation Calcium Carbonate (Tums) 1,000 mg PO QID PRN PRN Reason: Indigestion Carvedilol (Coreg) 50 mg PO BID [facility] Last Admin: 01/02/18 11:37 Dose: 25 mg Clonidine (Catapres) 0.1 mg PO Q4H PRN PRN Reason: SBP Greater Than 170 Last Admin: 12/31/17 18:06 Dose: 0.1 mg Furosemide (Lasix) 40 mg PO 0900,1400 [facility] Last Admin: 01/02/18 08:23 Dose: 40 mg Heparin Sodium (Porcine) (Heparin) 5,000 units SC TID [facility] Last Admin: 01/02/18 08:23 Dose: 5,000 units Hydralazine HCl (Apresoline) 20 mg SLOW IVP Q2H PRN PRN Reason: SBP Greater Than 180 Last Admin: 01/01/18 16:16 Dose: 20 mg Hydralazine HCl (Apresoline) 75 mg PO TID [facility] Last Admin: 01/02/18 08:23 Dose: 75 mg Isosorbide Mononitrate (Imdur) 60 mg PO DAILY [facility] Last Admin: 01/02/18 08:23 Dose: 60 mg Labetalol HCl (Normodyne) 20 mg SLOW IVP Q2H PRN PRN Reason: SBP Greater Than 180 Lisinopril (Zestril) 5 mg PO DAILY [facility] Last Admin: 01/02/18 11:37 Dose: 5 mg Lorazepam (Ativan) 0.5 mg SLOW IVP Q6H PRN PRN Reason: Anxiety Last Admin: 01/01/18 00:28 Dose: 0.5 mg Sodium Chloride (Flush - Normal Saline) 10 ml IVF Q12HR [facility] Last Admin: 01/02/18 11:38 Dose: 10 ml Sodium Chloride (Flush - Normal Saline) 10 ml IVF PRN PRN PRN Reason: Saline Flush
[2018-01-02] MEDS: Lorazepam 2 MG/ML VIAL SLOW IVP PRN (21:01)
--- NOTE | 2018-01-03 08:56 | PRG ---
DATE OF SERVICE: 01/02/2018 SERVICE: Pulmonary Medicine INTERVAL HISTORY: The patient is doing fine from a cardiovascular and respiratory standpoint. She h as no complaints of chest pain, nausea, vomiting, fevers or chills. Otherwise, there has been no int erval change to her condition. PHYSICAL EXAMINATION: VITAL SIGNS: Afebrile, pulse 60, blood pressure 164/95, respirations 16, saturation 93% on room air. GENERAL: The patient is awake, alert, in no apparent distress. LUNGS: Decent air entry bilaterally without prolonged expiratory phase. There are no crackles prese nt. HEART: Normal rate, regular. ABDOMEN: Soft, nontender, nondistended. Bowel sounds are positive. MUSCULOSKELETAL: No cyanosis or clubbing. There is trace pitting in the bilateral lower extremities . NEUROLOGIC: Grossly nonfocal. LABORATORY DATA: Creatinine 2.25. Basic metabolic profile and magnesium are otherwise unremarkable. ASSESSMENT: 1. Acute on chronic systolic and diastolic heart failure. 2. Pulmonary hypertension, likely multifactorial. 3. Obstructive sleep apnea, suspected. 4. Chronic kidney disease. 5. Non-ST elevation myocardial infarction. DISCUSSION AND PLAN: We will continue to diurese the patient to euvolemia. In the outpatient [facility], she needs to undergo a polysomnogram. Pulmonary Critical Care will continue to follow while she r emains in this location, however.
[2018-01-03] MEDS: Heparin 5,000 UNITS/ML VIAL SC SCH ×2 (09:11→15:24)
[2018-01-03] MEDS: Lisinopril 5 MG TAB PO SCH (09:11)
[2018-01-03] MEDS: Carvedilol 25 MG TAB PO SCH (09:11)
[2018-01-03] MEDS: Furosemide 40 MG TAB PO SCH ×2 (09:11→15:24)
[2018-01-03] MEDS: hydrALAZINE 25 MG TAB PO SCH ×2 (09:11→15:24)
--- NOTE | 2018-01-03 10:58 | PRG ---
DATE OF SERVICE: 01/03/2018 SERVICE: Pulmonary Medicine. INTERVAL HISTORY: The patient is doing fine from a respiratory standpoint. She remains on room air. She has no complaints of fevers, chills, nausea, vomiting or chest discomfort. There has been no i nterval change to her condition. She has been waiting on a floor bed for the last couple of days. OBJECTIVE: VITAL SIGNS: Afebrile, pulse 60, blood pressure 164/95, respirations 16, saturation 95% on room air. GENERAL: The patient is awake, alert, no apparent distress. LUNGS: Excellent air entry with no prolonged expiratory phase, wheezing, rhonchi or crackles. HEART: Normal rate, regular. ABDOMEN: Soft, nontender, nondistended. Bowel sounds are positive. MUSCULOSKELETAL: No cyanosis or clubbing. There is 1+ pitting in the bilateral lower extremities. NEUROLOGIC: Grossly nonfocal. LABORATORY DATA: Magnesium 2.0. ASSESSMENT: 1. Acute on chronic systolic and diastolic heart failure. 2. Pulmonary hypertension, multifactorial. 3. Obstructive sleep apnea, suspected. 4. Chronic kidney disease. 5. Non-ST elevation myocardial infarction, DISCUSSION AND PLAN: The patient will need to follow up with me in clinic in the outpatient setting to get a set up for an in-lab polysomnogram. At this point, she has no further requirements for inpa tient Pulmonary or Critical Care opinion and I will sign off. Please call with additional questions or concerns moving forward.
[2018-01-03 11:24] VITALS: BP 138/53; TEMP 97.7
--- NOTE | 2018-01-03 12:20 | DIS ---
PRIMARY CARE PHYSICIAN: [facility] [place] DATE OF ADMISSION: 12/30/2017 DATE OF DISCHARGE: 01/03/2018 DISCHARGE DIAGNOSES: 1. Acute exacerbation of systolic congestive heart failure, ACCAHA Class C. 2. Cardiomyopathy. 3. Chronic kidney disease. 4. Hypertensive urgency. 5. Hypokalemia. CONDITION OF PATIENT ON THE DAY OF DISCHARGE: Stable. I assessed Ms. aSnchez on the day of discharge. She denies any chest pain. Shortness of breath is better. Vital signs are stable. S1 and S2 are h eard, regular. Lungs are clear to auscultation bilaterally. CONSULTATIONS DURING THIS HOSPITALIZATION: Pulmonary and Critical Care Medicine, Dr. Shahriar Rivera and Cardiology, Dr. Rhodes. DISCHARGE MEDICATIONS: Coreg 50 mg 2 times a day, Lasix 40 mg 2 times a day, hydralazine 75 mg 3 simona es a day, Imdur 120 mg daily, lisinopril 5 mg daily, and potassium chloride 10 mEq daily. HOSPITAL COURSE: Ms. Sanchez is a pleasant 42-year-old lady who was admitted to [facility] on 12/30/2017 for hypertensive urgency as well as acute on chronic congestive heart failur e exacerbation. She was treated with diuretics and antihypertensives. A 2D echocardiogram on 2017 showed left ventricular ejection fraction of 10-15%, mildly dilated left atrium, moderate concen tric left ventricular hypertrophy, moderately increased left ventricular size, mild mitral regurgitat ion, mild to moderate aortic regurgitation, mild to moderate tricuspid regurgitation and right ventri cular systolic pressure elevation. She was also found to have renal insufficiency. However, in reviewing her previous records from a [place] facility, she had elevated creatinine in the past as well. Cardiology Service started her on lisinopril for cardiomyopathy. She is also on beta darlin and her beta darlin dose was increased. She had elevated troponin, but did not have any chest pain. She continued to improve clinically and has been cleared by Cardiology Service for discharge home. On 01/02/2018, she had sodium 138, potassium 3.5, creatinine 2.25, blood urea nitrogen 35 and a carbo n dioxide 28. BNP is elevated at 8298 during this hospitalization. Many thanks for allowing me to participate in your patient's care. She did not have a primary care fazal reeves at the time of admission. She is being set up with [facility] and with [facility] at [place]. DISCHARGE DESTINATION: Home. TOTAL AMOUNT OF TIME SPENT COORDINATING THIS DISCHARGE: 34 minutes.
--- NOTE | 2018-01-03 17:13 | PDOC.EVN ---
Event Note - Event Note Event Note: 11:35 AM-12 noon 01/03/18. Pt is admitetd for CHF and cardiomyopathy with EF 10- 15%. Refused Life Vest. Explained life-threatening nature of her diagnosis. Patient understands poor prognosis. Also discussed goals of care. Pt wishes to have aggressive medical treatments, but no CPR, intubation or mechanical ventilation. Documentation of DNR status done.
== END 2018-01-03 16:30 | disposition home or self-care (01) | DRG 280 ==
LOC: ERS 10:11 → CCU 14:45 → IMCU/EMU 12-31 14:48
PROVIDERS: ADMIT Internal Medicine; ATTEND Internal Medicine
DX: I13.0 Hypertensive heart and chronic kidney disease with heart failure and stage 1 through stage 4 chronic kidney disease, or unspecified chronic kidney disease (principal); I50.23 Acute on chronic systolic (congestive) heart failure; I21.A1 Myocardial infarction type 2; E87.1 Hypo-osmolality and hyponatremia; N17.9 Acute kidney failure, unspecified; Z68.41 Body mass index [BMI] 40.0-44.9, adult; I16.0 Hypertensive urgency; R62.7 Adult failure to thrive; I50.84 End stage heart failure; I25.5 Ischemic cardiomyopathy; E87.6 Hypokalemia; N18.9 Chronic kidney disease, unspecified; E66.9 Obesity, unspecified; Z87.891 Personal history of nicotine dependence; G47.33 Obstructive sleep apnea (adult) (pediatric); Z66 Do not resuscitate; I27.20 Pulmonary hypertension, unspecified
CPT/HCPCS: 36415; 71045; 80048; 80053; 82553; 83735; 83880; 84484; 84703; 85025; 93005; 93306; 93798; 96365; 96366; 96375; A4216; G8978-GP-CI; G8979-GP-CI; G8980-GP-CI; J1644; J1940; J2060